=== PATIENT | male | born 1965 | race Caucasian/White ===

== ENCOUNTER 2018-12-17 09:43 | Observation (INO) | payer OTHER ==
[~2018-12-17] VITALS: Ht 185.4 cm; Wt 134.4 kg
[2018-12-18 07:19] VITALS: BP 112/70
== END 2018-12-18 12:08 | disposition home or self-care (01) ==
LOC: CACL 09:43 → ORIP 12:30 → 5SO 16:12 → DCLOUNGE 12-18 11:55
PROVIDERS: ADMIT Internal Medicine Cardiovascular Disease; ATTEND Internal Medicine Cardiovascular Disease
DX: I20.0 Unstable angina (principal); E78.2 Mixed hyperlipidemia
CPT/HCPCS: 36415; 80048; 93005; 93458; 96365; 99156; 99157; C1725; C1769; C1874; C1887; C1894; C9600; G0378; J0583; J1644; J2250; J3010; Q9967

== ENCOUNTER 2020-06-23 16:47 | Inpatient (IN) | payer OTHER ==
[~2020-06-23] VITALS: Ht 185.4 cm; Wt 134.8 kg
[~2020-06-23 16:47] MED LIST: ASPI81TA45 PO; ATOR40TA78 PO; GEMF-31 PO; OMEP-110 PO; TICA90TA PO
--- NOTE | 2020-06-23 17:10 | NUR ---
PT BROUGHT BACK FROM TRIAGE WITH CHIEF COMPLAINT OF CP STARTING AT 12 TODAY, RESOLVED AT 15PM TODAY. PT REPORTS INTERMITTENT EPISODES FEELINGS THE SAME OVER THE PAST WEEK.
--- NOTE | 2020-06-23 17:23 | NUR ---
PROVIDER AT BEDSIDE AT ASSESSMENT AND TO DISCUSS PLAN OF CARE
--- NOTE | 2020-06-23 17:34 | NUR ---
PT PHARMACY CONFIRMED. PT UNABLE TO RECALL NAMES AND DOSES OF ALL MEDICATIONS AT THIS TIME.
[2020-06-23 17:45] LABS: BASOPHILS % (AUTO) 1 % (0-1); EOSINOPHILS % (AUTO) 1 % (1-7); LYMPHOCYTES % (AUTO) 34 % (22-44); MEAN CORPUSCULAR HEMOGLOBIN 30.5 pg (27.5-34.5); MEAN PLATELET VOLUME 8.5 fL (7.4-10.4); MONOCYTES % (AUTO) 7 % (2-9); NEUTROPHILS % (AUTO) 56 % (42-75); PLATELET COUNT 274 x10^3/uL (130-400); RED BLOOD COUNT 4.52 x10^6/uL (4.38-5.82); RED CELL DISTRIBUTION WIDTH 12.7 % (9.4-14.8)
[2020-06-23 17:51] LABS: ALBUMIN 4.2 g/dL (3.4-5.0); ANION GAP 7 mmol/L (5-15); CALCIUM 9.4 mg/dL (8.5-10.1); CHLORIDE 110 mmol/L (98-107); MD NO
[2020-06-23 17:57] LABS: CREATININE 1.01 mg/dL (0.7-1.3); TROPONIN I < 0.015 ng/mL (0.000-0.045)
--- NOTE | 2020-06-23 17:58 | NUR ---
AT BEDSIDE FOR ASSESSMENT. IV ACCESS OBTAINED. PT STATES NO NEEDS AT THIS TIME
[2020-06-23] MEDS ORDERED: MORPHINE SULFATE 4 MG/ML, 1ML ONE (18:27)
[2020-06-23] MEDS ORDERED: ONDANSETRON 2MG/ML, 2ML ONE (18:27)
[2020-06-23] MEDS ORDERED: ASPIRIN 325 MG TABLET ONE (18:27)
[2020-06-23] MEDS ORDERED: MORPHINE SULFATE 4 MG/ML, 1ML IVPush PRN (18:30)
[2020-06-23] MEDS ORDERED: PLEASE ENTER WEIGHT MC SCH (18:30)
[2020-06-23] MEDS ORDERED: ASPIRIN 325 MG TABLET PO ONE (18:30)
[2020-06-23] MEDS ORDERED: ONDANSETRON 2MG/ML, 2ML IVPush PRN ×2 (18:30→19:30)
--- NOTE | 2020-06-23 18:48 | NUR ---
BEDSIDE REPORT RECEIVED FROM JA JIMENES
--- NOTE | 2020-06-23 18:50 | NUR ---
PT RESTING ON [facility]. ORDERED MEDICATIONS ADMINISTERED. REPORT CALLED TO LI Mcmahon BELONGINGS LIST COMPLETE.
--- NOTE | 2020-06-23 18:51 | NUR ---
REPORT GIVEN SAMIRA JIMENES
--- NOTE | 2020-06-23 19:11 | NUR ---
HOSPITALIST AT BEDSIDE
[2020-06-23] MEDS ORDERED: hydrALAzine 20 MG/ML, 1ML IVPush PRN (19:30)
[2020-06-23] MEDS ORDERED: POLYETHYLENE GLYCOL 17 GM PACKET PO PRN (19:30)
[2020-06-23] MEDS ORDERED: BISACODYL 10 MG SUPP PR PRN (19:30)
[2020-06-23] MEDS ORDERED: ACETAMINOPHEN 325 MG TABLET PO PRN (19:30)
[2020-06-23] MEDS ORDERED: OXYcodone IR 5MG TABLET PO PRN (19:30)
[2020-06-23] MEDS ORDERED: morphine SULFATE 10 MG/ML, 1ML IVPush PRN (19:30)
[2020-06-23] MEDS ORDERED: NITROGLYCERIN 0.4 MG BOTTLE (25 TABS) SL PRN (19:30)
[2020-06-23] MEDS ORDERED: DOCUSATE 100 MG CAPSULE PO PRN (19:30)
[2020-06-23] MEDS ORDERED: PROMETHAZINE 25 MG/ML, 1ML IM PRN (19:30)
[2020-06-23] MEDS ORDERED: ONDANSETRON ODT 4 MG PO PRN (19:30)
[2020-06-23 20:01] VITALS: BP 149/93
[2020-06-23] MEDS ORDERED: ATORVASTATIN 40 MG TABLET PO SCH (21:00)
[2020-06-23] MEDS: TICAGRELOR 90 MG TABLET PO SCH (22:15)
[2020-06-23] MEDS: GEMFIBROZIL 600 MG TABLET PO SCH (22:15)
[2020-06-23] MEDS: HEPARIN 5,000 UNITS/ML, 1ML SQ SCH (22:15)
[2020-06-23] MEDS ORDERED: SODIUM CHLORIDE 0.9% 1,000 ML IV SCH (23:55)
[2020-06-24] MEDS ORDERED: PRAS10TA9 PO (00:07)
[2020-06-24 00:38] VITALS: BP 105/70
[2020-06-24 00:49] LABS: TROPONIN I < 0.015 ng/mL (0.000-0.045)
[2020-06-24 03:00] LABS: MEAN CORPUSCULAR HEMOGLOBIN 30.6 pg (27.5-34.5); MEAN CORPUSCULAR HGB CONC 34.8 g/dL (33.2-36.2); MEAN PLATELET VOLUME 8.2 fL (7.4-10.4); PLATELET COUNT 259 x10^3/uL (130-400); RED BLOOD COUNT 4.34 x10^6/uL (4.38-5.82); RED CELL DISTRIBUTION WIDTH 12.9 % (9.4-14.8)
[2020-06-24 03:13] LABS: ALBUMIN 3.7 g/dL (3.4-5.0); ANION GAP 8 mmol/L (5-15); CALCIUM 8.9 mg/dL (8.5-10.1); CHLORIDE 111 mmol/L (98-107)
[2020-06-24 03:16] LABS: ALANINE AMINOTRANSFERASE 43 U/L (12-78); ALKALINE PHOSPHATASE 62 U/L (45-117); CHOLESTEROL, TOTAL 122 mg/dL (140-239); CREATININE 1.07 mg/dL (0.7-1.3); HDL CHOL % 34 % (26-37); HDL CHOLESTEROL (DIRECT) 41 mg/dL (40-60); LDL CHOLESTEROL,CALCULATED 48 mg/dL (54-169); LDL/HDL RATIO 1.2 (0.5-3.0); TOTAL PROTEIN 6.9 g/dL (6.4-8.2); TRIGLYCERIDES 166 mg/dL (50-200); TROPONIN I < 0.015 ng/mL (0.000-0.045); VLDL CHOLESTEROL 33 mg/dL (0-25)
[2020-06-24 03:26] LABS: MD YES
[2020-06-24 03:29] LABS: ANISOCYTOSIS 1+; BASOS#(MANUAL) 0.06 x10^3/uL (0-0.1); BASOS% (MANUAL) 1 % (0-1); EOS#(MANUAL) 0.17 x10^3/uL (0.0-0.4); EOS% (MANUAL) 3 % (1-7); LYMPH#(MANUAL) 3.36 x10^3/uL (1-3.4); LYMPHS% (MANUAL) 58 % (22-44); MONOS#(MANUAL) 0.17 x10^3/uL (0.3-2.7); MONOS% (MANUAL) 3 % (2-9); SEG#(MANUAL) 2.03 x10^3/uL (1.8-6.8); SEGS% (MANUAL) 35 % (42-75)
[2020-06-24 03:30] LABS: <PLATELET ESTIMATE> ADEQUATE; <PLT MORPHOLOGY> NORMAL PLT MORPH
[2020-06-24] MEDS ORDERED: ASPIRIN 325 MG TABLET EC PO SCH (06:00)
[2020-06-24] MEDS: HEPARIN 5,000 UNITS/ML, 1ML SQ SCH ×2 (06:32→13:31)
[2020-06-24] MEDS ORDERED: ACETAMINOPHEN 325 MG TABLET PO PRN (08:00)
[2020-06-24] MEDS: GEMFIBROZIL 600 MG TABLET PO SCH (08:03)
[2020-06-24] MEDS: TICAGRELOR 90 MG TABLET PO SCH (08:04)
[2020-06-24 08:05] VITALS: BP 114/71
[2020-06-24] MEDS ORDERED: REGADENOSON 0.4 MG/5 ML SYRINGE ONE (08:10)
[2020-06-24] MEDS: LACTOBACILLUS CHEW TABLET PO SCH ×2 (08:10→16:00)
[2020-06-24] MEDS ORDERED: OMEPRAZOLE 20 MG CAPSULE.DR PO SCH (09:00)
[2020-06-24 10:27] VITALS: BP 143/72
[2020-06-24] MEDS ORDERED: ACID1TAB7 PO (12:01)
[2020-06-24] MEDS ORDERED: NITR0.4T28 SL (12:01)
[2020-06-24 13:43] VITALS: BP 122/75
[2020-06-24] MEDS ORDERED: FLU VACC QS2020-21(6MOS UP)/PF 60MCG/0.5 ML SYR IM-VACC ONE (17:00)
[2020-06-24] MEDS ORDERED: SODIUM CHLORIDE 0.9% 1,000 ML IV SCH (23:55)
== END 2020-06-24 17:54 | disposition home or self-care (01) | DRG 313 ==
LOC: ED 18:48 → INTOOBSV 19:10 → EDIP 19:10 → 5SO 19:59 → OBSVTOIN 06-24 10:28
PROVIDERS: ADMIT Internal Medicine; ATTEND Internal Medicine
DX: R07.9 Chest pain, unspecified (principal); E66.01 Morbid (severe) obesity due to excess calories; I10 Essential (primary) hypertension; E78.5 Hyperlipidemia, unspecified; I25.10 Atherosclerotic heart disease of native coronary artery without angina pectoris; Z87.891 Personal history of nicotine dependence; Z95.5 Presence of coronary angioplasty implant and graft; Z68.39 Body mass index [BMI] 39.0-39.9, adult
CPT/HCPCS: 36415; 71045; 78452; 80048; 80053; 80061; 82040; 83036; 83735; 84100; 84443; 84484; 85025; 90686; 93005; 93017; 93306; G0378; J1644; J2405; J2785; A9502; J2270; J7030